=== PATIENT | female | born 1985 | race Caucasian/White ===

== ENCOUNTER 2025-06-20 11:53 | Emergency (ER) | payer MEDICAID, SELFPAY ==
--- OUTSIDE RECORDS SUMMARY | 2025-06-20 17:30 | XMS_ITS | Clinical Summary ---
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 Primary Care Provider [phone] Encounters Date Type Department Care Team Description 03/30/2025 Telephone Gastroenterology - [address] [id number] Clarke Trejo MD from Last 3 Months Surgical History Surgery Date Site/Laterality Comments COLPOSCOPY PROCEDURE: [place] COLPOSCOPY ENTIRE VAGINA W/CERVIX IF PRESENT Family History Relation Name Status Comments Brother 1 Alive Brother 2 Alive Brother 3 Alive Father Alive Mother Alive Sister 1 Alive Sister 2 Alive Social History Tobacco Use Types Packs/Day Years Used Date Smoking Tobacco: Every Day Cigarettes Smokeless Tobacco: Never Alcohol Use Standard Drinks/Week Comments No 0 (1 standard drink = 0.6 oz pur e alcohol) Comments Unknown Sex and Gender Information Value Date Recorded Sex Assigned at Not on file Legal Sex Female 3:23 PM EST Gender Identity Not on file Sexual Orientation Not on file Plan of Treatment Upcoming Encounters Date Type Department Care Team ([facility] st Contact Info) Description 11/09/2025 1:00 PM EDT Consult Gastroenterology - [address] [phone] Breanna Daley PA [address] [id number] Health Maintenance Due Date Last Done Comments Hepatitis B Vaccines (1 of 3 - 19+ 3-dose series) 2006 Pneumococcal Vaccine: Pediatrics (0 to 5 Years) and At-Risk Patients (6 to 49 Years) (1 of 2 - PCV) 2006 Cervical Cancer Screening: P ap Smear 2008 HPV Vaccines (1 - 3-dose SCD M series) 2014 Cholesterol Screening (Lipid Panel) 07/22/2023 HIV Screening 07/22/2023 Hepatitis C Screening 07/22/2023 Social Influencers of Health Screening 07/22/2023 Depression Screening 06/23/2024 COVID-19 Vaccine (1 - 2024-2 6 season) 2025 Influenza Vaccine (#1) 2025 5, 03/19/2013 DTaP,Tdap,and Td Vaccines (4 - Td or Tdap) 10/21/2027 10/20/2017, 02/10/2015, 06/18/2013 RSV Immunization Adult Patients (1 - 1-dose 75+ series) 2062 HIB Vaccines Aged Out No longer eligi ble based on patient's age to complete this topic Hepatitis A Vaccines Aged Out No long er eligible based on patient's age to complete this topic IPV Vaccines Aged Out No longer eligi ble based on patient's age to complete this topic MMR Vaccines Aged Out No longer eligi ble based on patient's age to complete this topic Meningococcal ACWY Vaccine Aged Out N o longer eligible based on patient's age to complete this topic Meningococcal B Vaccine Aged Out No l onger eligible based on patient's age to complete this topic RSV Immunization Patients Under 20 months Aged Out No longer eligible b ased on patient's age to complete this topic Varicella Vaccines Aged Out No longer eligible based on patient's age to complete this topic Insurance MEDICAID - [place] Care Teams Cleat Maker Relationship Specialty Start Date End Date Glenna [place]ivas [place] [address] [place] [address] PCP - General Family Medicine 04/15/25
--- OUTSIDE RECORDS SUMMARY | 2025-06-20 17:30 | XMS_ITS | Clinical Summary ---
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 Role Phone Unavailable Primary Care Provider Unavailabl e Social History Tobacco Use Types Packs/Day Years Used Date Smoking Tobacco: Never Assessed Comments Unknown Sex and Gender Information Value Date Recorded Sex Assigned at Not on file Legal Sex Female 9:19 PM EDT Gender Identity Not on file Sexual Orientation Not on file Plan of Treatment Health Maintenance Due Date Last Done Comments Depression Screening 1987 HIV Screening 1987 SDOH Screening 1987 Disability Screening 1987 Alcohol/Substance Use Screening 1999 Tobacco Screening 1999 Family Planning (PISQ) 2002 HPV Vaccines (1 - 3-dose series) 2002 Hepatitis C Screening 2005 DTaP/Tdap/Td Vaccines (1 - Tdap) 2006 Hepatitis B Vaccines (1 of 3 - 19+ 3-dose series) 2006 Pap Smear 2008 Cervical Cancer Screening 2017 HPV/Cotest 2017 COVID-19 Vaccine (1 - 2024-2 6 season) 2025 Influenza Vaccine (#1) 2025 Zoster Vaccines (1 of 2) 2037 RSV Patients and Pa tients Aged 60 years or older (1 - 1-dose 75+ series) 2062 HIB [...] patient's age to complete this topic Meningococcal Vaccine Aged Out No laureano kishor eligible based on patient's age to complete this topic Pneumococcal Vaccine: Pediat rics (0 to 5 Years) and At-Risk Patients (6 to 49) Years Aged Out No longer eligible b ased on patient's age to complete this topic RSV under 20 months Aged Out No longe r eligible based on patient's age to complete this topic Rotavirus Vaccines Aged Out No longer eligible based on patient's age to complete this topic
== END 2025-06-20 15:26 | disposition left against medical advice (07) ==
PROVIDERS: Emergency Provider Emergency Medicine
DX: M25.571 Pain in right ankle and joints of right foot (principal)